=== PATIENT | male | born 1980 | race Caucasian/White ===

== ENCOUNTER 2024-01-08 20:45 | Emergency (ER) | payer BC, SELFPAY ==
[2024-01-08 20:45] VITALS: BP 131/78; PULSE 67; RESP 16; TEMP 36.4; O2SAT 98; BMI 29.1
--- NOTE | 2024-01-08 20:50 | ECG_ITS ---
APPROVED REPORT Exam: Resting ECG HR:61 bpm ECG Measurements Heart Rate 61 AXES TX 166 P 30 QRSd 93 QRS -5 QT 407 T 20 QTc 410 Conclusion SINUS RHYTHM LOW QRS VOLTAGE IN PRECORDIAL LEADS [QRS DEFLECTION < 1.0 mV IN CHEST LEADS] MINIMAL VOLTAGE CRITERIA FOR LVH, CONSIDER NORMAL VARIANT [MEETS CRITERIA IN ONE OF: R(aVL), S(V1), R(V5), R(V5/V6)+S(V1)] Electronically signed by : ARDEN KUMAR, 01/09/2024 06:07:53
--- NOTE | 2024-01-08 20:51 | ED_ITS ---
Discharge Plan Disposition Patient Disposition: Home, Self-Care Condition: Fair Prescriptions Prescriptions: New ondansetron 4 mg tablet,disintegrating 4 mg PO QID PRN (Reason: nausea and vomiting) Qty: 10 0RF No Action escitalopram oxalate 10 mg tablet 10 mg PO HS Patient Comments: TAKE 1 TABLET BY MOUTH ONCE DAILY Referrals Follow up/Referrals: Zofia Powell APRN [Primary Care Provider] - See instructions Activity Restrictions/Add. Instructions Additional Instructions/Restrictions: Follow-up with your PCP as needed for worsening signs and symptoms. Return to ER for any worsening signs or symptoms as needed including inability to tolerate oral intake increasing abdominal pain bright red blood per rectum fever etc. Clinical Impressions Clinical Impression: Nausea vomiting and diarrhea Stand Alone Forms Stand Alone Forms: Work/School Release Instructions Patient Instructions: DI for Syncope in Adults (Fainting) Discharge ED Provider: Ho Levine General Adult HPI <PAYAL Santizo - Last Filed: 01/08/24 23:06> General Chief complaint: Syncope Stated complaint: Syncope Time Seen by Provider: 01/08/24 20:52 History of Present Illness HPI narrative: Patient presents for evaluation of syncope. Patient has had acute onset this afternoon of projectile vomiting and too numerous to count diarrheal stools. 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 Patient and state that he was attempting to get up to make it to the bathroom when the first syncopal event occurred. He suffered no significant injury. Second occurred after making it to the toilet again patient syncopized but suffered no injury. Third episode happened with EMS as a witness who caught the patient thus no injury was occurred. Patient has no significant past medical history other than depression for which he is on escitalopram. Patient reports no chest pain shortness of breath fever chills hemoptysis hematochezia melena hematemesis hematuria. Related Data Home Medications Medication Instructions Recorded Confirmed escitalopram oxalate 10 mg tablet 10 mg PO HS 01/08/24 01/08/24 Previous Rx's Medication Instructions Recorded ondansetron 4 mg disintegrating 4 mg PO QID PRN nausea and 01/08/24 tablet vomiting #10 tabs Allergies Allergy/AdvReac Type Severity Reaction Status Date / Time Penicillins Allergy Verified 04/17/18 11:22 PFSH <PAYAL Santizo - Last Filed: 01/08/24 23:06> [facility] Disclaimer: The information contained in this section may have been updated after the patient was seen, as this information can be updated by other users. Medical History (Updated 01/08/24 @ 23:05 by PAYAL Santizo) Anxiety Surgical History (Updated 01/08/24 @ 22:26 by Srinivas Middleton, RN) No history of previous surgery Family History (Updated 01/08/24 @ 22:27 by Srinivas Middleton, RN) Other No significant family history Social History (Updated 01/08/24 @ 22:24 by Srinivas Middleton, RN) Smoking Status: Never smoker alcohol intake: never substance use type: denies use current occupational status: employed Travel in the last 8 weeks: None <PAYAL Santizo - Last Filed: 01/08/24 23:06> ROS Obtained: Yes Systems reviewed as appropriate & no additional complaints except as documented Physical Exam <PAYAL Santizo - Last Filed: 01/08/24 23:06> General General appearance: alert and in no apparent distress Head Head exam: atraumatic and normal inspection Eye Eye exam: Present normal appearance, PERRL and EOMI ENT ENT exam: Present normal exam, normal oropharynx and mucous membranes moist Neck Neck exam: Present normal inspection and full ROM; Absent tenderness or lymphadenopathy Chest Chest inspection: Present normal inspection and symmetric chest wall rise Respiratory Respiratory exam: Present normal lung sounds bilaterally; Absent respiratory distress or accessory muscle use Cardiovascular Cardiovascular exam: Present normal rhythm, bradycardia (Patient was bradycardic with a rate of 50 at the time of my exam however heart rate normalized to the 70s. Patient had just had a syncopal event after IV start however patient was already recumbent in the ER stretcher.), normal heart sounds, +S1 and +S2 Abdominal Exam Abdominal exam: Present soft, tenderness (Mild diffuse) and hyperactive bowel sounds; Absent guarding or rebound Extremities Exam Extremities exam: Present normal inspection and full ROM Back Exam Back exam: Present normal inspection and full ROM; Absent tenderness Neurological Exam Neurological exam: Present alert, oriented X3 and CN II-XII intact Psychiatric Psychiatric exam: Present normal affect and normal mood Skin Skin exam: Present warm, normal color and diaphoresis Medical Decision Making <PAYAL Santizo - Last Filed: 01/08/24 23:06> Medical Records Medical records reviewed: Yes I reviewed the patient's medical records. [place] Inquiry Pt receiving controlled substance: No Vital Signs: 01/08/24 20:45 01/08/24 20:59 01/08/24 21:45 Temperature 97.6 F Temperature Source Oral Pulse Rate 70 68 Pulse Rate [Right] 67 Respiratory Rate 16 18 14 Blood Pressure 112/82 117/83 Blood Pressure [Right Arm] 131/78 Blood Pressure Mean [Right Arm] 95 02 Sat by Pulse Oximetry 98 100 100 Oxygen Delivery Method Room Air Room Air Lab Data Lab results reviewed: Yes I reviewed the patient's lab results. Lab Results 01/08/24 20:45: WBC 14.6 H, RBC 5.52, Hgb 18.2 H, Hct 53.8 H, MCV 97.4 H, MCH 33.0 H, MCHC 33.9, RDW 13.8, Plt Count 290, MPV 8.2, Neut % (Auto) 85.8 H, Lymph % (Auto) 9.2 L, Walker % (Auto) 3.7, Eos % (Auto) 1.0, Baso % (Auto) 0.2, Neut # (Auto) 12.5 H, Lymph # (Auto) 1.4, Walker # (Auto) 0.6, Eos # (Auto) 0.2, Baso # (Auto) 0.0, Total Counted 100, Neutrophils % (Manual) 80 H, Lymphocytes % (Manual) 17, Monocytes % (Manual) 3, Platelet Estimate Normal, RBC Morphology Normal, PT 10.7, INR 0.99, Sodium 139, Potassium 3.7, Chloride 104, Carbon Dioxide 25, Anion Gap 13.7, BUN 18, Creatinine 1.40 H, Estimated Creat Clear 96, Estimated GFR 56 L, Est GFR ( Amer) 68, Glucose 150 H, Calcium 9.7, Magnesium 1.8, Total Bilirubin 1.0, AST 30, ALT 27, Alkaline Phosphatase 100, Troponin I < 0.01, Total Protein 7.9, Albumin 4.8, Globulin 3.1, Albumin/Globulin Ratio 1.5 01/08/24 22:19: Lactate 3.6 H 01/08/24 20:45 01/08/24 20:45 Orders (Tests/Meds): ED MEDICATIONS Generic Name Dose Route Start Last Admin Trade Name Karlq PRN Reason Stop Dose Admin Lactated Ringer's 1,000 mls @ 999 mls/hr 01/08/24 22:39 01/08/24 22:46 Lactated Ringer's 1000 Ml Bag IV 01/08/24 23:39 999 mls/hr .Q1H1M ONE Administration Promethazine HCl 25 mg 01/08/24 23:09 Promethazine Hcl 25mg/Ml 1ml Vial IV 01/08/24 23:10 ONCE ONE Sodium Chloride 25 ml 01/08/24 23:09 Sodium Chloride 0.9% 25ml Bag IV 01/08/24 23:10 ONCE ONE Discontinued Medications Generic Name Dose Route Start Last Admin Trade Name Freq PRN Reason Stop Dose Admin Lactated Ringer's 1,000 mls @ 999 mls/hr 01/08/24 20:56 01/08/24 21:18 Lactated Ringer's 1000 Ml Bag IV 01/08/24 21:56 999 mls/hr .Q1H1M ONE Administration Ondansetron HCl 4 mg 01/08/24 20:56 01/08/24 21:19 Ondansetron 4mg Odt SL 01/08/24 20:57 4 mg ONCE ONE Administration Promethazine HCl 25 mg 01/08/24 21:09 01/08/24 22:47 Promethazine Hcl 25mg/Ml 1ml Vial IV 01/08/24 21:10 Not Given ONCE ONE Sodium Chloride 25 ml 01/08/24 21:09 01/08/24 22:47 Sodium Chloride 0.9% 25ml Bag IV 01/08/24 21:10 Not Given ONCE ONE ORDERS Category Date Time Status CT head/brain wo con Stat Cat Scan 01/08/24 20:57 Completed Chest XR -- portable [XR chest portable] Stat Exams 01/08/24 20:57 Completed CBC w/Auto Diff [Complete Blood Count Auto Diff] Stat Lab 01/08/24 20:45 Completed CMP [Comprehensive Metabolic Panel] Stat Lab 01/08/24 20:45 Completed Diarrhea 23 Panel, PCR Stat Lab 01/08/24 21:25 Ordered INR [Prothrombin Time INR] Stat Lab 01/08/24 20:45 Completed Lactic Acid Stat Lab 01/08/24 22:19 Completed Magnesium Stat Lab 01/08/24 20:45 Completed Trop I [Troponin I] Stat Lab 01/08/24 20:45 Completed Troponin I Q3H Lab 01/08/24 23:57 Ordered Troponin I Q3H Lab 01/09/24 02:57 Ordered UA [Urinalysis and Microscopic] Stat Lab 01/08/24 20:57 Ordered Medical Decision Narrative: In summary patient is a 43-year-old male who presents to the emergency department for evaluation of syncope and nausea vomiting diarrhea. Patient is initially hemodynamically stable satting at 98% on room air breathing 16 times a minute upon arrival, and afebrile. Physical exam is remarkable for diaphoresis and diffuse mild abdominal pain with hyperactive bowel sounds. Differential diagnosis includes acute gastroenteritis bowel obstruction stroke ACS etc. Initial workup will be conducted with hematologic labs CT scan of the head chest x-ray diarrhea panel. Initial interventions include crystalloid bolus Toradol Tylenol Zofran. Initial workup reviewed by me shows an elevated white count that is likely stress margination, creatinine 1.4 with a GFR 56, lactate of 3.6, and my informal review of his CT scan of his head and plain from chest x-ray shows no acute processes.. Upon repeat evaluation patient has had resolution of his emesis and has not had a diarrheal stool since arrival.. Given this patient has tolerated a p.o. challenge and is appropriate for discharge home with close follow-up with his PCP. I request the patient collect a stool specimen if able prior to discharge however he has not been able to do so. Abner: Independent interpretation of EKG demonstrated sinus rhythm [address] or T wave changes concerning for acute ischemia. Intervals within normal limits including MI, QRS, QT. <Ho Levine MD - Last Filed: 01/08/24 23:11> Vital Signs: 01/08/24 20:45 01/08/24 20:59 01/08/24 21:45 Temperature 97.6 F Temperature Source Oral Pulse Rate 70 68 Pulse Rate [Right] 67 Respiratory Rate 16 18 14 Blood Pressure 112/82 117/83 Blood Pressure [Right Arm] 131/78 Blood Pressure Mean [Right Arm] 95 02 Sat by Pulse Oximetry 98 100 100 Oxygen Delivery Method Room Air Room Air Lab Data Lab Results 01/08/24 20:45: WBC 14.6 H, RBC 5.52, Hgb 18.2 H, Hct 53.8 H, MCV 97.4 H, MCH 33.0 H, MCHC 33.9, RDW 13.8, Plt Count 290, MPV 8.2, Neut % (Auto) 85.8 H, Lymph % (Auto) 9.2 L, Walker % (Auto) 3.7, Eos % (Auto) 1.0, Baso % (Auto) 0.2, Neut # (Auto) 12.5 H, Lymph # (Auto) 1.4, Walker # (Auto) 0.6, Eos # (Auto) 0.2, Baso # (Auto) 0.0, Total Counted 100, Neutrophils % (Manual) 80 H, Lymphocytes % (Manual) 17, Monocytes % (Manual) 3, Platelet Estimate Normal, RBC Morphology Normal, PT 10.7, INR 0.99, Sodium 139, Potassium 3.7, Chloride 104, Carbon Dioxide 25, Anion Gap 13.7, BUN 18, Creatinine 1.40 H, Estimated Creat Clear 96, Estimated GFR 56 L, Est GFR ( Amer) 68, Glucose 150 H, Calcium 9.7, Magnesium 1.8, Total Bilirubin 1.0, AST 30, ALT 27, Alkaline Phosphatase 100, Troponin I < 0.01, Total Protein 7.9, Albumin 4.8, Globulin 3.1, Albumin/Globulin Ratio 1.5 01/08/24 22:19: Lactate 3.6 H Orders (Tests/Meds): ED MEDICATIONS Generic Name Dose Route Start Last Admin Trade Name Freq PRN Reason Stop Dose Admin Lactated Ringer's 1,000 mls @ 999 mls/hr 01/08/24 22:39 01/08/24 22:46 Lactated Ringer's 1000 Ml Bag IV 01/08/24 23:39 999 mls/hr .Q1H1M ONE Administration Promethazine HCl 25 mg 01/08/24 23:09 Promethazine Hcl 25mg/Ml 1ml Vial IV 01/08/24 23:10 ONCE ONE Sodium Chloride 25 ml 01/08/24 23:09 Sodium Chloride 0.9% 25ml Bag IV 01/08/24 23:10 ONCE ONE Discontinued Medications Generic Name Dose Route Start Last Admin Trade Name Freq PRN Reason Stop Dose Admin Lactated Ringer's 1,000 mls @ 999 mls/hr 01/08/24 20:56 01/08/24 21:18 Lactated Ringer's 1000 Ml Bag IV 01/08/24 21:56 999 mls/hr .Q1H1M ONE Administration Ondansetron HCl 4 mg 01/08/24 20:56 01/08/24 21:19 Ondansetron 4mg Odt SL 01/08/24 20:57 4 mg ONCE ONE Administration Promethazine HCl 25 mg 01/08/24 21:09 01/08/24 22:47 Promethazine Hcl 25mg/Ml 1ml Vial IV 01/08/24 21:10 Not Given ONCE ONE Sodium Chloride 25 ml 01/08/24 21:09 01/08/24 22:47 Sodium Chloride 0.9% 25ml Bag IV 01/08/24 21:10 Not Given ONCE ONE ORDERS Category Date Time Status CT head/brain wo con Stat Cat Scan 01/08/24 20:57 Completed Chest XR -- portable [XR chest portable] Stat Exams 01/08/24 20:57 Completed CBC w/Auto Diff [Complete Blood Count Auto Diff] Stat Lab 01/08/24 20:45 Completed CMP [Comprehensive Metabolic Panel] Stat Lab 01/08/24 20:45 Completed Diarrhea 23 Panel, PCR Stat Lab 01/08/24 21:25 Ordered INR [Prothrombin Time INR] Stat Lab 01/08/24 20:45 Completed Lactic Acid Stat Lab 01/08/24 22:19 Completed Magnesium Stat Lab 01/08/24 20:45 Completed Trop I [Troponin I] Stat Lab 01/08/24 20:45 Completed Troponin I Q3H Lab 01/08/24 23:57 Ordered Troponin I Q3H Lab 01/09/24 02:57 Ordered UA [Urinalysis and Microscopic] Stat Lab 01/08/24 20:57 Ordered Medical Decision Narrative: In summary patient is a 43-year-old male who presents to the emergency department for evaluation of syncope and nausea vomiting diarrhea. Patient is initially hemodynamically stable satting at 98% on room air breathing 16 times a minute upon arrival, and afebrile. Physical exam is remarkable for diaphoresis and diffuse mild abdominal pain with hyperactive bowel sounds. Differential diagnosis includes acute gastroenteritis bowel obstruction stroke ACS etc. Initial workup will be conducted with hematologic labs CT scan of the head chest x-ray diarrhea panel. Initial interventions include crystalloid bolus Toradol Tylenol Zofran. Initial workup reviewed by me shows an elevated white count that is likely stress margination, creatinine 1.4 with a GFR 56, lactate of 3.6, and my informal review of his CT scan of his head and plain from chest x-ray shows no acute processes.. Upon repeat evaluation patient has had resolution of his emesis and has not had a diarrheal stool since arrival.. Given this patient has tolerated a p.o. challenge and is appropriate for discharge home with close follow-up with his PCP. I request the patient collect a stool specimen if able prior to discharge however he has not been able to do so. Abner: Independent interpretation of EKG demonstrated sinus rhythm [address] or T wave changes concerning for acute ischemia. Intervals within normal limits including MI, QRS, QT. Because patient at baseline without signs or symptoms of clinical decompensation, deemed appropriate for discharge. Results were relayed to patient[] who voiced understanding and were agreeable to outpatient management and follow up. I discussed my clinical impression with patient[] and answered all questions. At this time, the evidence for any other entities in the differential is insufficient to warrant any further testing or ED observation. This was explained as well. Advisory was given that persistent or worsening symptoms require further evaluation. I confirmed the understanding of this discussion. I was consulted by the NADINE, and we discussed the complexity of the problems being addressed. I approved the treatment and management plan for this patient?s care in the Emergency Department, thus performing a substantive portion of the medical decision making. Ho Levine MD Critical Care <PAYAL Santizo - Last Filed: 01/08/24 23:06> Critical Care Time Critical Care Time: No
--- NOTE | 2024-01-08 20:57 | XR_ITS ---
PROCEDURE INFORMATION: Exam: XR Chest Exam date and time: 01/08/2024 8:57 PM Age: 43 years old Clinical indication: Other: Syncope TECHNIQUE: Imaging protocol: Radiologic exam of the chest. Views: 1 view. COMPARISON: No relevant prior studies available. FINDINGS: Lungs: No consolidation. Pleural spaces: No pleural effusion. No pneumothorax. Heart/Mediastinum: No cardiomegaly. Diaphragm: Right diaphragmatic elevation. Bones/joints: Unremarkable. IMPRESSION: No acute pulmonary findings.
--- NOTE | 2024-01-08 20:57 | CT_ITS ---
PROCEDURE INFORMATION: Exam: CT Head Without Contrast Exam date and time: 01/08/2024 9:05 PM Age: 43 years old Clinical indication: Syncope and collapse TECHNIQUE: Imaging protocol: Computed tomography of the head without contrast. Radiation optimization: All CT scans at this facility use at least one of these dose optimization techniques: automated exposure control; mA and/or kV adjustment per patient size (includes targeted exams where dose is matched to clinical indication); or iterative reconstruction. COMPARISON: No relevant prior studies available. FINDINGS: Brain: No hemorrhage. Unremarkable white matter. No mass effect. Cerebral ventricles: No ventriculomegaly. Paranasal sinuses: Mild mucosal thickening. Right maxillary sinus bubbly opacities and air fluid level suggestive of acute sinusitis. Mastoid air cells: Visualized mastoid air cells are well aerated. Bones: Unremarkable. No acute fracture. Soft tissues: Unremarkable. IMPRESSION: No acute intracranial findings.
[2024-01-08 20:59] VITALS: BP 112/82; PULSE 70; RESP 18; O2SAT 100
[2024-01-08 21:05] LABS: Basophils % 0.2 % (0.1-2.0); Chloride 104 mmol/L (98-107); Eosinophils # 0.2 K/mm3 (0.0-0.4); Hematocrit 53.8 % (42.0-52.0); Lymphocytes # 1.4 K/mm3 (0.7-4.5); Lymphocytes % 9.2 % (10-50); Mean Corpuscular HGB Conc 33.9 g/dL (31.8-35.4); Mean Corpuscular Volume 97.4 fl (80-94); Mean Platelet Volume 8.2 fl (7.4-10.4); Monocytes # 0.6 K/mm3 (0.1-1.0); Monocytes % 3.7 % (1.7-9.3); Neutrophils # 12.5 K/mm3 (1.8-7.8); Neutrophils % 85.8 % (37.0-80.0); Platelet Count 290 K/mm3 (142-424); Potassium 3.7 mmoL/L (3.5-5.1); Red Blood Count 5.52 M/mm3 (4.60-6.20); Red Cell Distribution Width 13.8 % (11.5-17.5); Sodium 139 mmol/L (136-145); White Blood Count 14.6 K/mm3 (4.8-10.8)
[2024-01-08 21:07] LABS: Blood Urea Nitrogen 18 mg/dl (9-20); Creatinine Clearance Estimated 96 mL/min (50-200); Estimated Glomerular Filt Rate 56 ml/min (>60); GFR (African American) 68 ML/MIN (>60)
[2024-01-08 21:08] LABS: Alanine Aminotransferase 27 U/L (12-78); Albumin Level 4.8 g/dl (3.5-5.0); Alkaline Phosphatase 100 U/L (38-126); Anion Gap 13.7 mEq/L (5-15); Aspartate Amino Transferase 30 U/L (17-59); Calcium 9.7 mg/dl (8.4-10.2); Carbon Dioxide 25 mmol/L (22.0-30.0); Glucose 150 mg/dl (74-100); Magnesium 1.8 mg/dl (1.6-2.3); Total Protein,Serum 7.9 g/dl (6.3-8.2)
[2024-01-08 21:11] LABS: INR 0.99 (0.9-1.1); Prothrombin Time 10.7 seconds (10.1-12.5)
[2024-01-08 21:12] LABS: Hemoglobin 18.2 g/dL (14.1-18.0)
[2024-01-08 21:13] LABS: MANUAL DIFFERENTIAL MANUAL DIFFERENTIAL (MANUAL DIFF)
[2024-01-08] MEDS: LACTATED RINGERS 1000ML 1,000 ML 999 ML IV ×2 (21:18→22:46)
[2024-01-08] MEDS: ONDANSETRON 4MG ODT 4 MG SL (21:19)
[2024-01-08 21:21] LABS: Troponin I < 0.01 ng/ml (0.00-0.034)
[2024-01-08 21:39] LABS: Albumin/Globulin Ratio 1.5 (1.1-1.8); Globulin 3.1 g/dL (1.3-3.2)
[2024-01-08 21:41] LABS: Lymphocytes % 17 % (10-50); Monocytes % 3 % (2-9); Neutrophils % 80 % (42-76); Platelet Estimate Normal; RBC Morphology Normal; Total Cells Counted 100
[2024-01-08 21:45] VITALS: BP 117/83; PULSE 68; RESP 14; O2SAT 100
[2024-01-08 22:36] LABS: Lactic Acid 3.6 mmol/L (0.7-2.1)
[2024-01-08] MEDS: SODIUM CHLORIDE 0.9% 25ML BAG 25 ML IV (23:11)
[2024-01-08] MEDS: PROMETHAZINE HCL 25MG/ML 1ML VIAL 25 MG IV (23:11)
[2024-01-08 23:15] VITALS: BP 115/71; PULSE 78; RESP 16; TEMP 36.6; O2SAT 98
== END 2024-01-08 23:45 | disposition home or self-care (01) ==
PROVIDERS: Physician Assistant; Emergency Provider Emergency Medicine; PCP Nurse Practitioner Family
DX: R11.2 Nausea with vomiting, unspecified (principal); R19.7 Diarrhea, unspecified; R55 Syncope and collapse
CPT/HCPCS: 70450; 71045; 80053; 83605; 83735; 84484; 85007; 85025; 85610; 93005; 96361; 96374; 96376; 99285